=== PATIENT | male | born 1990 | race Caucasian/White ===

== ENCOUNTER 2020-10-20 02:58 | Emergency (ER) | payer OTHER ==
[2020-10-20] MEDS ORDERED: CYCLOBENZAPRINE10 MG PO (03:56)
[2020-10-20] MEDS ORDERED: DICLOFENAC SODI75 MG PO (03:56)
== END 2020-10-20 04:00 | disposition home or self-care (01) ==
LOC: FER 02:58
DX: M62.830 Muscle spasm of back (principal); F17.210 Nicotine dependence, cigarettes, uncomplicated
CPT/HCPCS: 71046